=== PATIENT | female | born 1975 | race Two or more races ===

== ENCOUNTER 2019-03-24 01:21 | Emergency (ER) | payer OTHER ==
[~2019-03-24] VITALS: Ht 165.1 cm; Wt 113.6 kg
[2019-03-24 04:29] VITALS: BP 111/77
== END 2019-03-24 05:16 | disposition home or self-care (01) ==
LOC: EMS 01:22
DX: S01.511A Laceration without foreign body of lip, initial encounter (principal); Z90.49 Acquired absence of other specified parts of digestive tract; Y04.0XXA Assault by unarmed brawl or fight, initial encounter; Y93.89 Activity, other specified; Y92.89 Other specified places as the place of occurrence of the external cause; Y99.8 Other external cause status
CPT/HCPCS: 40650